=== PATIENT | female | born 1975 ===

== ENCOUNTER 2017-12-02 06:01 | Day surgery (SDC) | payer OTHER ==
[2017-12-02] MEDS ORDERED: ceFAZolin IV 1 gm in Dextrose 1 GM/50 ML BAG IVPB ONE ×2 (07:51→08:31)
[2017-12-02] MEDS ORDERED: Lidocaine Hydrochloride 0 ML INJ ONE (07:51)
[2017-12-02] MEDS ORDERED: Bupivacaine HCl 0.5% PF (30 ml) Inj ONE (07:56)
[2017-12-02] MEDS ORDERED: Propofol 10 mg/ml Inj (20 ML) ONE ×2 (08:03→08:40)
[2017-12-02] MEDS ORDERED: Midazolam 2 MG/2 ML VIAL ONE (08:04)
[2017-12-02] MEDS ORDERED: Succinylcholine Chloride 20 mg/ml Syr (5 ml) IV ONE (08:29)
[2017-12-02] MEDS ORDERED: Bupivacaine 0.25% Inj(30mL) INFIL ONE (08:30)
--- NOTE | 2017-12-02 10:32 | PCM.SURG1 ---
Surgeon's Initial Post Op Note - Surgeon's Notes Surgeon: Dr. Rivers, Dr. Jones International Sourcing Manager: Dr. Robbie Martínez Type of Anesthesia: General LMA Anesthesia Administered By: Dr. Gutierrez Pre-Operative Diagnosis: Right lower extremity Achilles tendon repair and posterior heel repair Operative Findings: Speed bridge, 0 vicryl, Nylon Post-Operative Diagnosis: same Operation Performed: Right ankle Achilles tendon repair, posterior heel spur resection Specimen/Specimens Removed: right heel bone Estimated Blood Loss: EBL {In ML}: 10 Blood Products Given: N/A Drains Used: No Drains Post-Op Condition: Good Date of Surgery/Procedure: 12/02/17 Time of Surgery/Procedure: 08:33
[2017-12-02] MEDS ORDERED: Oxycodone/Acetaminophen 5/325 mg Tab PO PRN ×2 (10:34)
[2017-12-02] MEDS ORDERED: HYDROmorphone 0.5 mg/0.5 ml ISec IVP PRN (10:39)
[2017-12-02 11:33] VITALS: O2SAT 100
[2017-12-02 12:11] VITALS: BP 125/56; PULSE 80; RESP 18; TEMP 98
--- NOTE | 2017-12-02 13:43 | RAD ---
PROCEDURE: Right Ankle Radiographs. HISTORY: Patient in SDS. s/p right foot surgery COMPARISON: None FINDINGS: BONES: No fracture. Incidental plantar calcaneal spur. JOINTS: Normal. No osteoarthritis. Ankle mortise maintained. Talar dome intact SOFT TISSUES: Normal. OTHER FINDINGS: None. IMPRESSION: No acute fracture.
--- NOTE | 2017-12-02 13:44 | RAD ---
PROCEDURE: Right Foot Radiographs. HISTORY: Patient in SDS. s/p right foot surgery COMPARISON: None. FINDINGS: BONES: Bony detail obscured by overlying fiberglass splint. No fracture. JOINTS: Normal. SOFT TISSUES: Normal. OTHER FINDINGS: None. IMPRESSION: Normal right foot radiographs.
--- NOTE | 2017-12-03 21:19 | PCM.OP ---
Operative Report - Operative Report Date of Surgery/Procedure: 12/03/17 Time of Surgery/Procedure: 07:50 Surgeon: Dr. Rivers Staff Consultant: Dr. Robbie Martínez, Dr. Jones Anesthesia/Sedation: IV sedation and regional popliteal block Pre-Operative Diagnosis: General endo and regional popliteal block Post-Operative Diagnosis: Pre-Operative Diagnoses: #1. Right lower extremity Achilles tendon partial tear with tendonitis. #2. Right foot painful posterior exostosis of calcaneus. Indication for Surgery: Indications: The patient is a 42 year-old F with the above diagnoses. The patient has exhausted conservative treatment at this time and now requests surgical intervention. The patient signed the consent after careful explanation of risks, benefits, complication and alternatives for surgical procedure. No guarantees were given nor implied. 2 grams of ancef IV were given to the pt hour prior to the procedure. NPO status was confirmed prior to taking pt to the OR. Operative Findings: Preparation: Patient was given right lower extremity Popliteal regional block by Anesthesiologist before the surgery. The patient was brought to the operating room and placed on the operating room table in Prone position. A well-padded pneumatic Thigh tourniquet was placed to the patient's Right lower extremity .. Once local anesthesia was achieved, the Right Lower extremity was then prepped and draped in usual sterile manner. Esmarch was utilized to exsanguinate the patient's Right foot. Pneumatic ankle tourniquet was then inflated to 350 mmHg and procedure began. Procedure/Operation Description: Name of Procedure: #1. Repair of Right lower extremity Achilles tendon partial tear and tendonitis. #2. Resection of posterior calcaneal exostosis. PROCEDURE #1: Repair of Right lower extremity Achilles tendon partial tear and tendonitis. Attention was directed to the posterior aspect of right lower extremity at the distal aspect of Achilles tendon and tendon insertion. Utilizing #15 blade, approximately 6 cm linear longitudinal incision was made staying central to the Achilles tendon. . The incision was deepened through the subcutaneous tissues using sharp and blunt dissection. Care was taken to identify and retract all vital neurovascular structures. All bleeders were cauterized and ligated as necessary. Next, Utilizing #15 blade, longitudinal incision was made on the paratenon and which was retracted to medially and laterally. Next Utilizing #15 blade, Achilles tendon was splitted at the line incision as full thickness from posterior to anterior and debrided all non-viable tissues and tendiopathic tissues. Partial tear was noticed to the body of the tendon, and unhealthy portion of the Achilles tendon was gently debrided with #15 blade. Next, distal insertion of the Achilles tendon was released from Caleneus utilizing #15 blade. The surgical site was irrigated with copious amount of sterile normal saline. PROCEDURE #2: Resection of posterior calcaneal exostosis. Attention was redirected to the superior posterior boris prominence of the right calcaneus. Utilizing oscillating bone saw bony prominence was resected to be sent for pathology. At this time, care was taken to chamfer off the medial and lateral sides of the calcaneus so as not to leave a promenece that was palpable under the skin. Next two holes were created to the osteotomy site of posterior calcaneus, approximately 1 cm from each other and 1cm proximal to the distal insertion of the Achilles tendon. Next, the 4.75 mm Swivel Lock tap was used to prepare the two holes for the 4.75mm Swivelocks. Swivelocks were inserted intot he prepared holes. Next, two of Arthrex 4.75mm Biocomposite Swivel Lock anchors were loaded with Fibertape sutures. Next the 2 mm FiberTape on a needle was passed through the Achilles tendon on each side. Next, two distal holes were made on the posterior aspect of calcaneus with 3.5mm drill in the same manner as the two proximal holes. Next, the two distal holes were tapped in preparation for the 4.75mm SwiveLocks. Next, each Fibertape tails were retrieved from each proximal anchor and were preloaded through the distal SwiveLock eyelet. The preloaded 4.75mm Swivelocks were then inserted into the prepared distal bone sockets until the anchor body contacted bone. Firm and secure fixation of the Achilles tendon was confirmed with passive range of motion in the ankle joint intra-operatively. The surgical site was irrigated with copious amount of sterile normal saline. Next the Achilles tendon was reapproximated with 2-0 vicryl. Soft tissue was reaprroximated with 3-0 and -4- 0 vicryl and skin was reapproximated with 4-0 Nylon as simple suture technique. The surgical area was infiltrated with 10ml of 0.5% Marcaine plain. The right lower extremity was dressed with saline soaked x4 and DSD. Posterior splint was applied was applied to the right lower extremity. The attending was present during the entire case. Estimated Blood Loss: <5 mL Complications: None Discharge & Condition: Postoperative Condition: The patient tolerated the anesthesia and procedure well and was escorted to the recovery room with vital signs stable and neurovascular status intact to the Right foot. This patient will follow up with Dr. Rivers
== END 2017-12-02 14:24 | disposition home or self-care (01) ==
LOC: C.SDS 06:01
PROVIDERS: ATTEND Podiatrist
DX: M77.31 Calcaneal spur, right foot (principal); M76.61 Achilles tendinitis, right leg
CPT/HCPCS: 28119; 73600; 73620; 88304; 97116; 97161; C1713; G8978; G8979; G8980; J0690; J1170; J2250; J2704; J3010

== ENCOUNTER 2018-08-25 10:39 | Outpatient (CLI) | payer OTHER | END 2018-08-25 10:40 | disposition home or self-care (01) | LOC: C.RADH 10:39 | DX: M54.89 Other dorsalgia (principal) ==